=== PATIENT | female | born 1990 | race Caucasian/White ===

== ENCOUNTER 2017-01-20 14:40 | Emergency (ER) | payer MEDICAID ==
[2017-01-20] MEDS ORDERED: Ketorolac 60 MG/2 ML SDV IM ONE (15:22)
[2017-01-20 15:24] VITALS: BP 131/82
--- NOTE | 2017-01-20 15:39 | EDM.PDOC ---
ED HISTORY OF PRESENT ILLNESS - General Chief Complaint: Chest Pain Stated Complaint: CHEST PAIN Time Seen by Provider: 01/20/17 14:45 Source of Information: Reports: Patient, Family, RN, RN notes reviewed History Limitations: Reports: No limitations - History of Present Illness INITIAL COMMENTS - FREE TEXT/NARRATIVE: Patient presents to the emergency room at [facility] complaining of left- sided chest pain. The patient states that her chest pain began around 8:30 PM last evening. The patient states that the chest pain was unprovoked. The patient has no previous cardiac history. The patient denies any injury or trauma to the chest. No previous chest surgeries. The patient states she's had some shortness of breath with the chest pain. The chest pain is reproducible with palpation. The patient states that the pain extends into the middle of her back. The patient denies any nausea vomiting or diarrhea. No focal neurological deficits. The patient was seen today at the [facility]. I did speak with the provider that saw her in clinic. The patient had an EKG that was normal and unremarkable. The patient did not have any blood work or chest x-ray as it was not medically necessary given the diagnosis of costochondritis and chest wall pain. The patient was discharged from the clinic with a prescription for diclofenac. The patient was also seen by her chiropractor who had nothing to offer her. The patient states that the chiropractor recommended that she be seen in the emergency department. Symptom Onset Date: 01/19/17 Symptom Onset Time: 20:30 Timing/Duration: Reports: Waxing/waning Severity: mild Location, General: Reports: chest Quality: Reports: Sharp Improves with: Reports: Rest Worsens with: Reports: Breathing, Movement Context, General: Denies: Activity, Exercise, Lifting, Sick contact, Trauma Associated Symptoms (General): Reports: no other symptoms - Related Data Allergies/ADRs: Allergies Allergy/AdvReac Type Severity Reaction Status Date / Time hydromorphone HCl Allergy Hives Verified 11/15/16 16:46 [From Dilaudid] Sulfa (Sulfonamide Allergy Hives Verified 11/15/16 16:46 Antibiotics) sumatriptan [From Imitrex] Allergy Cannot Verified 01/20/17 15:08 Remember tramadol Allergy Hives Verified 11/15/16 16:46 CT dye Allergy Hives Uncoded 05/02/14 17:58 Home Meds: Home Meds . 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 Neurological History: Reports: Migraines Psychiatric History: Reports: Depression Endocrine/Metabolic History: Reports: Obesity/BMI 30+ - Past Surgical History Female Surgical History: Reports: Breast reduction Social & Family History - Tobacco Use Smoking Status *Q: Current Every Day Smoker Years of Tobacco use: 10 Packs/Tins Daily: 0.5 - Alcohol Use Days Per Week of Alcohol Use: 0 Number of Drinks Per Day: 3 Total Drinks Per Week: 0 - Recreational Drug Use Recreational Drug Use: No ED ROS GENERAL - Review of Systems Review Of Systems: See Below Constitutional: Denies: fever, chills, weakness Respiratory: Reports: Shortness of Breath (mild), Pleuritic Chest Pain. Denies : Cough Cardiovascular: Reports: Chest pain. Denies: Blood pressure problem, Dyspnea on exertion, Lightheadedness, Palpitations GI/Abdominal: Reports: No symptoms Musculoskeletal: Reports: back pain, muscle pain Skin: Reports: no symptoms Neurological: Reports: No Symptoms. Denies: Dizziness, Headache, Numbness, Paresthesia, Tingling ED EXAM, GENERAL - Physical Exam Exam: See Below Exam Limited By: No limitations General Appearance: alert, no apparent distress Respiratory/Chest: no respiratory distress, lungs clear, normal breath sounds, other (chest wall tender at clavicular joint) Cardiovascular: regular rate, rhythm Peripheral Pulses: 2+: radial (L), radial (R) GI/Abdominal: normal bowel sounds, soft, non tender Back Exam: No: CVA tenderness (L), CVA tenderness (R) Neurological: alert, oriented Skin Exam: Warm, Dry, Intact, Normal color, No rash Course - Vital Signs Last Recorded V/S: Last Vital Signs Temp 36.7 C 01/20/17 14:50 Pulse 81 01/20/17 14:50 Resp 16 01/20/17 14:50 BP 131/82 01/20/17 14:50 Pulse Ox - Orders/Labs/Meds Orders: Active Orders 24 hr Category Date Time Status EKG 12 Lead [EKG Documentation Completion] [RC] STAT Care 01/20/17 15:21 Active Chest 2V [CR] Stat Exams 01/20/17 15:23 Taken Labs: Laboratory Tests 01/20/17 01/20/17 01/20/17 Range/Units 15:39 15:39 15:54 WBC 8.6 (4.0-10.0) x10^3/uL RBC 4.63 (4.00-5.50) x10^6/uL Hgb 13.2 (12.0-16.0) g/dL Hct 40.7 (33.0-47.0) % MCV 87.9 (78.0-93.0) fL MCH 28.5 (26.0-32.0) pg MCHC 32.4 (32.0-36.0) g/dL RDW Coeff of Anne 13.5 (10.0-15.0) % Plt Count 269 (130-400) x10^3/uL Neut % (Auto) 71.6 (50.0-80.0) % Lymph % (Auto) 18.4 L (25.0-50.0) % [place] % (Auto) 8.3 (2.0-11.0) % Eos % (Auto) 1.5 (0.0-4.0) % Baso % (Auto) 0.2 (0.2-1.2) % Sodium 141 (136-145) mmol/L Potassium 4.5 (3.5-5.1) mmol/L Chloride 103 (98-107) mmol/L Carbon Dioxide 31 (21-32) mmol/L BUN 12 (7-18) mg/dL Creatinine 0.6 (0.55-1.02) mg/dL Est Cr Clr Drug Dosing 100.27 mL/min Estimated GFR (MDRD) > 60 Glucose 98 (74-106) mg/dL Calcium 8.3 L (8.5-10.1) mg/dL Creatine Kinase 69 (26-192) U/L Creatine Kinase Index 1.0 (0.0-4.0) % CK-MB (CK-2) 0.7 (0.0-3.6) ng/mL Troponin I < 0.017 (<=0.056) ng/mL Urine Color (YELLOW) Urine Appearance (CLEAR) Urine pH (5.0-8.0) Ur Specific [place] Urine Protein (NEGATIVE) mg/dL Urine Glucose (UA) (NEGATIVE) mg/dL Urine Ketones (NEGATIVE) mg/dL Urine Occult Blood (NEGATIVE) Urine Nitrite (NEGATIVE) Urine Bilirubin (NEGATIVE) Urine Urobilinogen (0.2) EU/dL Ur Leukocyte Esterase (NEGATIVE) Urine RBC (NOT SEEN) /HPF Urine WBC (NOT SEEN) /HPF Ur Squamous Epith Cells (NEGATIVE) /HPF Urine Bacteria (NEGATIVE) /HPF Urine Mucus (NEGATIVE) /LPF Urine Opiates Screen Negative (NEGATIVE) Ur Buprenorphine Scrn Negative (NEGATIVE) Ur Oxycodone Screen Negative (NEGATIVE) Urine Methadone Screen Negative (NEGATIVE) Ur Barbiturates Screen Negative (NEGATIVE) Ur Tricyclics Screen Negative (NEGATIVE) Ur Amphetamine Screen Negative (NEGATIVE) U Methamphetamines Scrn Negative (NEGATIVE) Urine MDMA Screen Negative (NEGATIVE) U Benzodiazepines Scrn Negative (NEGATIVE) U Cocaine Metab Screen Negative (NEGATIVE) U Marijuana (THC) Screen Negative (NEGATIVE) 01/20/17 Range/Units 15:54 WBC (4.0-10.0) x10^3/uL RBC (4.00-5.50) x10^6/uL Hgb (12.0-16.0) g/dL Hct (33.0-47.0) % MCV (78.0-93.0) fL MCH (26.0-32.0) pg MCHC (32.0-36.0) g/dL RDW Coeff of Anne (10.0-15.0) % Plt Count (130-400) x10^3/uL Neut % (Auto) (50.0-80.0) % Lymph % (Auto) (25.0-50.0) % [place] % (Auto) (2.0-11.0) % Eos % (Auto) (0.0-4.0) % Baso % (Auto) (0.2-1.2) % Sodium (136-145) mmol/L Potassium (3.5-5.1) mmol/L Chloride (98-107) mmol/L Carbon Dioxide (21-32) mmol/L BUN (7-18) mg/dL Creatinine (0.55-1.02) mg/dL Est Cr Clr Drug Dosing mL/min Estimated GFR (MDRD) Glucose (74-106) mg/dL Calcium (8.5-10.1) mg/dL Creatine Kinase (26-192) U/L Creatine Kinase Index (0.0-4.0) % CK-MB (CK-2) (0.0-3.6) ng/mL Troponin I (<=0.056) ng/mL Urine Color Dark yellow H (YELLOW) Urine Appearance Slightly cloudy H (CLEAR) Urine pH 7.0 (5.0-8.0) Ur Specific [place] 1.020 Urine Protein Negative (NEGATIVE) mg/dL Urine Glucose (UA) Negative (NEGATIVE) mg/dL Urine Ketones Negative (NEGATIVE) mg/dL Urine Occult Blood Negative (NEGATIVE) Urine Nitrite Negative (NEGATIVE) Urine Bilirubin Negative (NEGATIVE) Urine Urobilinogen 1.0 (0.2) EU/dL Ur Leukocyte Esterase Negative (NEGATIVE) Urine RBC 0-5 (NOT SEEN) /HPF Urine WBC 5-10 H (NOT SEEN) /HPF Ur Squamous Epith Cells Moderate H (NEGATIVE) /HPF Urine Bacteria Few H (NEGATIVE) /HPF Urine Mucus Moderate H (NEGATIVE) /LPF Urine Opiates Screen (NEGATIVE) Ur Buprenorphine Scrn (NEGATIVE) Ur Oxycodone Screen (NEGATIVE) Urine Methadone Screen (NEGATIVE) Ur Barbiturates Screen (NEGATIVE) Ur Tricyclics Screen (NEGATIVE) Ur Amphetamine Screen (NEGATIVE) U Methamphetamines Scrn (NEGATIVE) Urine MDMA Screen (NEGATIVE) U Benzodiazepines Scrn (NEGATIVE) U Cocaine Metab Screen (NEGATIVE) U Marijuana (THC) Screen (NEGATIVE) Meds: Medications Discontinued Medications Generic Name Dose Route Start Last Admin Trade Name Freq PRN Reason Stop Dose Admin Ketorolac Tromethamine 60 mg 01/20/17 15:22 01/20/17 15:36 Toradol IM 01/20/17 15:23 60 mg ONETIME ONE Administration Orphenadrine Citrate 60 mg 01/20/17 15:23 01/20/17 15:36 Norflex IM 01/20/17 15:24 60 mg Q12H ONE Administration Departure - Departure Time of Disposition: 16:34 Disposition: Home, Self-Care 01 Condition: good Clinical Impression: Costochondritis, Chest wall pain Instructions: Costochondritis Referrals: Ileana Borrero PA-C [Primary Care Provider] - Forms: ED Department Discharge Additional Instructions: 1. Stay well hydrated and rest 2. Use medications given to use from the clinic today 3. See your Primary as symptoms warrant - Problem List Review Problem List Initiated/Reviewed/Updated: Yes - My Orders Last 24 Hours: My Active Orders 01/20/17 15:21 EKG 12 Lead [EKG Documentation Completion] [RC] STAT 01/20/17 15:23 Chest 2V [CR] Stat - Assessment/Plan Last 24 Hours: My Active Orders 01/20/17 15:21 EKG 12 Lead [EKG Documentation Completion] [RC] STAT 01/20/17 15:23 Chest 2V [CR] Stat
[2017-01-20 16:16] LABS: CHLORIDE,CL 103 mmol/L (98-107); SODIUM,NA 141 mmol/L (136-145)
== END 2017-01-20 16:40 | disposition home or self-care (01) ==
LOC: VM.ED 14:40
DX: M94.0 Chondrocostal junction syndrome [Tietze] (principal); K21.9 Gastro-esophageal reflux disease without esophagitis; F32.9 Major depressive disorder, single episode, unspecified; E66.9 Obesity, unspecified; F17.210 Nicotine dependence, cigarettes, uncomplicated; Z88.2 Allergy status to sulfonamides; Z88.5 Allergy status to narcotic agent; Z91.041 Radiographic dye allergy status; Z88.8 Allergy status to other drugs, medicaments and biological substances
CPT/HCPCS: 36415; 71020; 80048; 80305; 81001; 82550; 82553; 84484; 85025; 93005; 96372; 99285; J1885; J2360

== ENCOUNTER 2017-03-26 14:29 | Emergency (ER) | payer MEDICAID ==
--- NOTE | 2017-03-26 14:41 | EDM.PDOC ---
ED HPI GENERAL MEDICAL PROBLEM - General Chief Complaint: Upper Extremity Injury/Pain Stated Complaint: Fall; right wrist injury; cut to top of right thumb Time Seen by Provider: 03/26/17 14:30 Source of Information: Reports: Patient, RN, RN Notes Reviewed History Limitations: Reports: No Limitations - History of Present Illness INITIAL COMMENTS - FREE TEXT/NARRATIVE: Patient presents to the ED at [facility] with two separate complaints. 2 days ago, patient states she was cutting food, when the knife slipped and caused a very superficial skin abrasion to the dorsum of the right thumb. Yesterday, the patient states she fell forward, causing a right wrist injury. No previous injury or trauma. No previous right wrist surgeries. No swelling. Only pain is with hyperflexion. Right Wrist Pain Score (Numeric/FACES): 2 - Related Data Allergies Allergy/AdvReac Type Severity Reaction Status Date / Time hydromorphone HCl Allergy Hives Verified 03/26/17 14:41 [From Dilaudid] Sulfa (Sulfonamide Allergy Hives Verified 03/26/17 14:41 Antibiotics) sumatriptan [From Imitrex] Allergy Cannot Verified 03/26/17 14:41 Remember tramadol Allergy Hives Verified 03/26/17 14:41 CT dye Allergy Hives Uncoded 03/26/17 14:41 Home Meds: Home Meds . [No Known Home Meds] 01/20/17 [History] Past Medical History HEENT History: Reports: Otitis Media Cardiovascular History: Reports: Other (See Below) Other Cardiovascular History: mitral valve prolapse? 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 Neurological History: Reports: Migraines Psychiatric History: Reports: Depression Endocrine/Metabolic History: Reports: Obesity/BMI 30+ - Past Surgical History HEENT Surgical History: Reports: Naso-Sinus Surgery Female Surgical History: Reports: Breast Reduction Social & Family History - Tobacco Use Smoking Status *Q: Current Every Day Smoker Years of Tobacco use: 10 Packs/Tins Daily: 0.5 - Alcohol Use Days Per Week of Alcohol Use: 0 Number of Drinks Per Day: 3 Total Drinks Per Week: 0 - Recreational Drug Use Recreational Drug Use: No Review of Systems - Review of Systems Review Of Systems: See Below Constitutional: Denies: Chills, Fever, Weakness Respiratory: Denies: Shortness of Breath, Cough Cardiovascular: Denies: Chest Pain, Palpitations Musculoskeletal: Reports: Hand Pain Skin: Reports: Wound (top of right thumb) Neurological: Reports: No Symptoms. Denies: Numbness, Paresthesia, Tingling ED EXAM, GENERAL - Physical Exam Exam: See Below Exam Limited By: No Limitations General Appearance: Alert, No Apparent Distress Head: Atraumatic, Normocephalic Respiratory/Chest: No Respiratory Distress, Lungs Clear, Normal Breath Sounds Cardiovascular: Regular Rate, Rhythm Peripheral Pulses: 2+: Radial (R) Extremities: Normal Capillary Refill, Other (no bone deformity; no attila crepitus; skin intact). No: Joint Swelling, Limited Range of Motion Neurological: Alert, Oriented Skin Exam: Warm, Dry, Normal Color, No Rash, Wound/Incision (0.2cm skin abrasion to dorsum of right thumb; skin intact, no evidence of infection; very very mild eythema) Course - Vital Signs Last Recorded V/S: Last Vital Signs Temp 36.9 C 03/26/17 14:30 Pulse 80 03/26/17 14:30 Resp 16 03/26/17 14:30 BP 102/69 03/26/17 14:30 Pulse Ox - Orders/Labs/Meds Orders: Active Orders 24 hr Category Date Time Status Wrist Comp Min 3V Rt [CR] Stat Exams 03/26/17 14:35 Taken - Re-Assessments/Exams Free Text/Narrative Re-Assessment/Exam: 03/26/17 15:14 No intervention needed for skin abrasion to top of right thumb. Xray discussed with patient; recommend an IFEOMA wrap for a couple days and use ice as needed Departure - Departure Time of Disposition: 15:15 Disposition: Home, Self-Care 01 Condition: good Clinical Impression: Skin abrasion Right wrist injury Qualifiers: Encounter type: initial encounter Qualified Code(s): S69.91XA - Unspecified injury of right wrist, hand and finger(s), initial encounter - Discharge Information Instructions: Wrist Pain Referrals: Ileana Borrero PA-C [Primary Care Provider] - Forms: ED Department Discharge Additional Instructions: 1. Stay well hydrated and rest 2. Use ice on wrist as needed 3. May alternate Tylenol/Advil as needed 4. No infection of the right thumb; keep area clean and dry 5. See your Primary as symptoms warrant - Problem List Review Problem List Initiated/Reviewed/Updated: Yes - My Orders Last 24 Hours: My Active Orders 03/26/17 14:35 Wrist Comp Min 3V Rt [CR] Stat - Assessment/Plan Last 24 Hours: My Active Orders 03/26/17 14:35 Wrist Comp Min 3V Rt [CR] Stat
[2017-03-26 14:47] VITALS: BP 102/69
== END 2017-03-26 15:28 | disposition home or self-care (01) ==
LOC: VM.ED 14:29
DX: S69.91XA Unspecified injury of right wrist, hand and finger(s), initial encounter (principal); K21.9 Gastro-esophageal reflux disease without esophagitis; F17.210 Nicotine dependence, cigarettes, uncomplicated; Z88.8 Allergy status to other drugs, medicaments and biological substances; Z88.2 Allergy status to sulfonamides; W26.0XXA Contact with knife, initial encounter
CPT/HCPCS: 73110-RT; 99283

== ENCOUNTER 2019-11-02 17:31 | Emergency (ER) | payer MEDICAID ==
[2019-11-02 17:45] VITALS: BP 131/91; PULSE 87
[2019-11-02] MEDS ORDERED: Take Home: Phenazopyridine 95 MG Tab, 4 Tab Pack ONE (17:58)
[2019-11-02] MEDS ORDERED: Take Home: Nitrofurantoin Monohydrate/Macrocrystalline 100 MG, 2 Cap Pack PO ONE (17:58)
--- NOTE | 2019-11-02 18:24 | EDM.PDOC ---
ED HPI GENERAL MEDICAL PROBLEM - General Chief Complaint: Genitourinary Problem Stated Complaint: POSSIBLE UTI Time Seen by Provider: 11/02/19 17:50 Source of Information: Reports: Patient History Limitations: Reports: No Limitations - History of Present Illness INITIAL COMMENTS - FREE TEXT/NARRATIVE: Patient presents to the ER with complaints of UTI. Patient states she has had symptoms for last 2 days. States she has polyuria and urgency and it scott when she urinates. Patient states she has lower abdominal discomfort. Patient denies fever, chills, myalgias or rash. Patient states she gets UTIs often, last was about 2 months ago. patient Denies STI's, states her and her partner were tested last week and it was negative. Patient denies lower back pain. Patient stated she had right subcostal discomfort that radiated towards her lower abdominal earlier today that lasted about 2 minutes. Patient denies having diarrhea or abdominal cramping when eating fatty foods. Onset Date: 10/31/19 Duration: Constant Location: Reports: Abdomen Severity: Moderate Improves with: Reports: None Worsens with: Reports: None Associated Symptoms: Reports: No Other Symptoms - Related Data Allergies Allergy/AdvReac Type Severity Reaction Status Date / Time cefdinir Allergy Cannot Verified 11/02/19 17:44 Remember hydromorphone HCl Allergy Hives Verified 11/02/19 17:44 [From Dilaudid] Sulfa (Sulfonamide Allergy Hives Verified 11/02/19 17:44 Antibiotics) sumatriptan [From Imitrex] Allergy Cannot Verified 11/02/19 17:44 Remember tramadol Allergy Hives Verified 11/02/19 17:44 CT dye Allergy Hives Uncoded 11/02/19 17:44 Home Meds: Home Meds . [No Known Home Meds] 01/20/17 [History] Past Medical History HEENT History: Reports: Otitis Media Cardiovascular History: Reports: Other (See Below) Other Cardiovascular History: mitral valve prolapse? 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 Neurological History: Reports: Migraines Psychiatric History: Reports: Depression Endocrine/Metabolic History: Reports: Obesity/BMI 30+ - Past Surgical History HEENT Surgical History: Reports: Naso-Sinus Surgery Female Surgical History: Reports: Breast Reduction Social & Family History - Tobacco Use Smoking Status *Q: Unknown Ever Smoked ED ROS GENERAL - Review of Systems Review Of Systems: See Below Constitutional: Denies: Fever, Chills, Malaise, Decreased Appetite HEENT: Denies: Vertigo Respiratory: Denies: Shortness of Breath, Cough Cardiovascular: Denies: Chest Pain, Dyspnea on Exertion, Palpitations Endocrine: Reports: Polyuria. Denies: Fatigue GI/Abdominal: Reports: Abdominal Pain. Denies: Constipation, Diarrhea, Decreased Appetite, Distension, Flatus, Nausea : Reports: Dysuria, Frequency, Urgency. Denies: Discharge, Flank Pain Musculoskeletal: Reports: No Symptoms Skin: Denies: Rash Neurological: Denies: Confusion, Dizziness, Headache, Numbness, Tingling, Weakness Psychiatric: Denies: Agitation, Anxiety Hematologic/Lymphatic: Reports: No Symptoms Immunologic: Reports: No Symptoms ED EXAM, GENERAL - Physical Exam Exam: See Below Exam Limited By: No Limitations General Appearance: Alert, No Apparent Distress Eye Exam: Bilateral Eye: PERRL Ears: Normal External Exam Nose: Normal Inspection Throat/Mouth: Normal Inspection Head: Atraumatic, Normocephalic Neck: Normal Inspection Respiratory/Chest: No Respiratory Distress, Lungs Clear, Normal Breath Sounds Cardiovascular: Regular Rate, Rhythm, No Edema, No Murmur GI/Abdominal: Normal Bowel Sounds, Soft, Other (lower abdominal tenderness) (Female) Exam: Deferred Rectal (Female) Exam: Deferred Neurological: Alert, Oriented, CN II-XII Intact, Normal Cognition, Normal Gait, Normal Reflexes, No Motor/Sensory Deficits Psychiatric: Normal Affect, Normal Mood Skin Exam: Warm, Dry, Intact, Normal Color, No Rash Lymphatic: No Adenopathy Course - Vital Signs Last Recorded V/S: Last Vital Signs Temp 36.6 C 11/02/19 17:36 Pulse 87 11/02/19 17:36 Resp 16 11/02/19 17:36 BP 131/91 H 11/02/19 17:36 Pulse Ox 99 11/02/19 17:36 - Orders/Labs/Meds Orders: Active Orders 24 hr Category Date Time Status CULTURE URINE [RM] Stat Lab 11/02/19 17:50 Received UA W MICR POC [POC] Stat Lab 11/02/19 17:50 Results Labs: Laboratory Tests 11/02/19 Range/Units 17:50 Urine Color Dark yellow (YELLOW) POC Urine Appearance Slightly cloudy H (CLEAR) POC Urine pH 7.5 (5.0-8.0) Ur Specific [place] 1.015 (1.005-1.030) POC Urine Protein Trace H (NEGATIVE) POC Ur Glucose (UA) Negative (NEGATIVE) POC Urine Ketones Negative (NEGATIVE) POC Ur Occult Blood Negative (NEGATIVE) POC Urine Nitrite Negative (NEGATIVE) POC Urine Bilirubin Negative (NEGATIVE) POC Urine Urobilinogen 0.2 (0.2) POC U Leukocyte Esteras Moderate H (NEGATIVE) Meds: Medications Discontinued Medications Generic Name Dose Route Start Last Admin Trade Name Freq PRN Reason Stop Dose Admin Nitrofurantoin Macrocrystals 2 packet 11/02/19 17:58 Take Home: Nitrofur [place]/Ma 100 Mg, 2 Pack PO 11/02/19 17:59 ONETIME ONE Phenazopyridine HCl 2 packet 11/02/19 17:58 Take Home: Phenazopyridine, 4 Tab Pack .XX 11/02/19 17:59 ONETIME ONE Departure - Departure Time of Disposition: 06:30 Disposition: Home, Self-Care 01 Clinical Impression: UTI, Urinary tract infectious disease - Discharge Information Instructions: Nitrofurantoin tablets or capsules, Phenazopyridine tablets, Probiotics Referrals: Lucio Rico PA-C [Primary Care Provider] - Forms: ED Department Discharge Additional Instructions: Macrobid 100mg twice daily for 7 days Pyridium (phenazopyridine) 1 tab 3 times daily for 5 days Drink plenty of fluids Recheck in clinic in 10-14 days Sepsis Event Note - Evaluation Sepsis Screening Result: No Definite Risk - Focused Exam Vital Signs: Vital Signs Temp Pulse Resp BP Pulse Ox 11/02/19 17:36 36.6 C 87 16 131/91 H 99 Date Exam was Performed: 11/02/19 Time Exam was Performed: 18:17 - My Orders Last 24 Hours: My Active Orders 11/02/19 17:50 CULTURE URINE [RM] Stat UA W MICR POC [POC] Stat - Assessment/Plan Last 24 Hours: My Active Orders 11/02/19 17:50 CULTURE URINE [RM] Stat UA W MICR POC [POC] Stat Plan: Macrobid 100mg twice daily for 7 days Pyridium (phenazopyridine) 1 tab 3 times daily for 5 days Drink plenty of fluids Recheck in clinic in 10-14 days
== END 2019-11-02 18:22 | disposition home or self-care (01) ==
LOC: VM.ED 17:31
DX: N39.0 Urinary tract infection, site not specified (principal); Z88.1 Allergy status to other antibiotic agents; Z88.2 Allergy status to sulfonamides; Z88.6 Allergy status to analgesic agent; Z91.041 Radiographic dye allergy status
CPT/HCPCS: 81000; 87086; 87088; 87186; 99284; A9270-GY

== ENCOUNTER 2020-08-15 23:25 | Emergency (ER) | payer MEDICAID ==
[2020-08-15] MEDS: Take Home: Amoxicillin/Clavulanate K 875-125 MG Tab, 2 Tab Pack PO ONE ×2 (23:40)
[2020-08-15] MEDS: Take Home: Acetaminophen/Codeine 300 MG/30 MG, 5 Tab Pack PO ONE (23:40)
--- NOTE | 2020-08-15 23:47 | EDM.PDOC ---
ED HPI GENERAL MEDICAL PROBLEM - General Chief Complaint: ENT Problem Stated Complaint: Right dental pain Time Seen by Provider: 08/15/20 23:27 Source of Information: Reports: Patient History Limitations: Reports: No Limitations - History of Present Illness INITIAL COMMENTS - FREE TEXT/NARRATIVE: Pt. presents to ER with complaints of R sided dental pain. Pt. states that she thinks she has had a chip or hole in her tooth. Pt. states that is have been causing her discomfort for several days, but she noticed swelling and numbness to the cheek tonight. Denies any fever or chills. No problems with fever or chills. Denies any chest pain or shortness of breath. Onset: Today Location: Reports: Face - Related Data Allergies Allergy/AdvReac Type Severity Reaction Status Date / Time cefdinir Allergy Cannot Verified 11/02/19 17:44 Remember hydromorphone HCl Allergy Hives Verified 11/02/19 17:44 [From Dilaudid] Sulfa (Sulfonamide Allergy Hives Verified 11/02/19 17:44 Antibiotics) sumatriptan [From Imitrex] Allergy Cannot Verified 11/02/19 17:44 Remember tramadol Allergy Hives Verified 11/02/19 17:44 CT dye Allergy Hives Uncoded 11/02/19 17:44 Home Meds: Home Meds . [No Known Home Meds] 01/20/17 [History] Past Medical History HEENT History: Reports: Otitis Media Cardiovascular History: Reports: Other (See Below) Other Cardiovascular History: mitral valve prolapse? 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 Neurological History: Reports: Migraines Psychiatric History: Reports: Depression Endocrine/Metabolic History: Reports: Obesity/BMI 30+ - Past Surgical History HEENT Surgical History: Reports: Naso-Sinus Surgery Female Surgical History: Reports: Breast Reduction ED ROS GENERAL - Review of Systems Review Of Systems: See Below Constitutional: Reports: No Symptoms HEENT: Reports: Dental Pain Respiratory: Reports: No Symptoms Cardiovascular: Reports: No Symptoms Endocrine: Reports: No Symptoms GI/Abdominal: Reports: No Symptoms : Reports: No Symptoms Musculoskeletal: Reports: No Symptoms Skin: Reports: No Symptoms Neurological: Reports: No Symptoms Psychiatric: Reports: No Symptoms Hematologic/Lymphatic: Reports: No Symptoms Immunologic: Reports: No Symptoms ED EXAM, GENERAL - Physical Exam Exam: See Below Exam Limited By: No Limitations General Appearance: Alert, WD/WN, No Apparent Distress Throat/Mouth: Normal Lips, Other (missing several teeth. No obvious abscess noted. She does have some swelling to the R cheek. No swelling to the hypopharynx) Head: Atraumatic, Normocephalic Neck: Normal Inspection, Supple, Non-Tender, Full Range of Motion Respiratory/Chest: No Respiratory Distress, Lungs Clear, Normal Breath Sounds, No Accessory Muscle Use, Chest Non-Tender Course - Orders/Labs/Meds Meds: Medications Discontinued Medications Generic Name Dose Route Start Last Admin Trade Name Freq PRN Reason Stop Dose Admin Acetaminophen/Codeine Phosphate 2 packet 08/15/20 23:34 Take Home: Acetam/Codeine 300-30 Mg, 5 Pack PO 08/15/20 23:35 ONETIME ONE Amoxicillin/Clavulanate Potassium 1 packet 08/15/20 23:34 Take Home: Amox/Clavulanate 875-12, 2 Tab Pac PO 08/15/20 23:35 ONETIME ONE Amoxicillin/Clavulanate Potassium 1 packet 08/15/20 23:39 Take Home: Amox/Clavulanate 875-12, 2 Tab Pac PO 08/15/20 23:40 ONETIME ONE Ketorolac Tromethamine 30 mg 08/15/20 23:34 08/15/20 23:51 Toradol IM 08/15/20 23:35 30 mg ONETIME ONE Administration Departure - Departure Time of Disposition: 11:55 Disposition: Home, Self-Care 01 Clinical Impression: Pain, dental - Discharge Information Instructions: Amoxicillin; Clavulanic Acid tablets, Dental Abscess, [id number], Acetaminophen; Codeine tablets , Probiotics Forms: ED Department Discharge Additional Instructions: Home to rest. Augmentin 875mg 1 twice daily for 10 days Ibuprofen 200mg 3 tabs every 6 hours as needed for pain Tylenol #3 1 every 6-8 hours as needed for pain severe pain Follow-up with dentist on Monday. - Assessment/Plan Plan: Home to rest. Augmentin 875mg 1 twice daily for 10 days Ibuprofen 200mg 3 tabs every 6 hours as needed for pain Tylenol #3 1 every 6-8 hours as needed for pain severe pain Follow-up with dentist on Monday.
[2020-08-15] MEDS: Ketorolac 30 MG/ML SDV IM ONE (23:51)
[2020-08-16 02:27] VITALS: BP 126/79; PULSE 92
== END 2020-08-15 23:50 | disposition home or self-care (01) ==
LOC: VM.ED 23:25
DX: K08.89 Other specified disorders of teeth and supporting structures (principal); E66.9 Obesity, unspecified; Z88.5 Allergy status to narcotic agent; Z88.1 Allergy status to other antibiotic agents; Z91.041 Radiographic dye allergy status; Z88.8 Allergy status to other drugs, medicaments and biological substances; Z68.35 Body mass index [BMI] 35.0-35.9, adult
CPT/HCPCS: 96372; 99282; 99283; A9270-GY; J1885

== ENCOUNTER 2020-11-08 10:36 | Emergency (ER) | payer MEDICAID ==
[2020-11-08 10:52] VITALS: BP 111/80; PULSE 89
[2020-11-08] MEDS ORDERED: Ondansetron 4 MG/2 ML SDV IVPUSH ONE (11:10)
[2020-11-08] MEDS ORDERED: Ketorolac 30 MG/ML SDV IVPUSH ONE (11:10)
[2020-11-08] MEDS ORDERED: Sodium Chloride 0.9% 1,000 ML IV ONE (11:10)
[2020-11-08] MEDS ORDERED: Orphenadrine 60 MG/2 ML Inj IM ONE (11:10)
--- NOTE | 2020-11-08 11:17 | EDM.PDOC ---
ED HPI GENERAL MEDICAL PROBLEM - General Chief Complaint: Headache Stated Complaint: HEADACHE Time Seen by Provider: 11/08/20 11:00 Source of Information: Reports: Patient History Limitations: Reports: No Limitations - History of Present Illness INITIAL COMMENTS - FREE TEXT/NARRATIVE: Sarah is a 30 year old female who presents to ER with complaints of a migraine headache. States headache started last evening. Has tried Aleve and ibuprofen without relief. Describes as a typical headache for her with usual features. Has a pressure across her forehead region, neck discomfort "due to bone being out of place" and nausea. Admits to photophobia. No weakness in arms or legs. Denies head trauma. Relates that she has had neurological evaluation for migraines in the past, had CT scan before that was negative. Is supposed to be taking Propranolol and is to resume on Monday, admits that she doesn't take it regularly like she should. Onset: Gradual Duration: Hour(s):, Constant Location: Reports: Head, Neck Quality: Reports: Pressure, Sharp Severity: Severe Improves with: Reports: None Associated Symptoms: Reports: Headaches, Nausea/Vomiting. 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 [No Known Home Meds] 01/20/17 [History] Past Medical History HEENT History: Reports: Otitis Media Cardiovascular History: Reports: Other (See Below) Other Cardiovascular History: mitral valve prolapse? Gastrointestinal History: Reports: GERD HOME AID History: Reports: Other HOME AID History: LEEP procedure Neurological History: Reports: Migraines Psychiatric History: Reports: Addiction, Depression Endocrine/Metabolic History: Reports: Obesity/BMI 30+ - Past Surgical History HEENT Surgical History: Reports: Naso-Sinus Surgery Other HEENT Surgeries/Procedures: Sinus surgeries (bilateral nares) Female Surgical History: Reports: Breast Reduction Social & Family History - Tobacco Use Tobacco Use Status *Q: Current Every Day Tobacco User Years of Tobacco use: 10 Packs/Tins Daily: 0.5 - Recreational Drug Use Recreational Drug Use: Yes Recreational Drug Type: Reports: Methamphetamine Recreational Drug Use Frequency: Daily Recreational Drug Last Use: 11/07/20 ED ROS GENERAL - Review of Systems Review Of Systems: See Below Constitutional: Denies: Fever, Chills, Malaise, Weakness, Fatigue, Decreased Appetite HEENT: Denies: Ear Pain, Sinus Problem, Throat Pain, Vertigo, Vision Change Respiratory: Denies: Shortness of Breath Cardiovascular: Denies: Chest Pain, Edema, Lightheadedness Endocrine: Denies: Fatigue GI/Abdominal: Reports: Nausea. Denies: Abdominal Pain, Constipation, Diarrhea, Vomiting : Reports: No Symptoms Musculoskeletal: Reports: Neck Pain Skin: Reports: No Symptoms Neurological: Reports: Headache. Denies: Weakness - Physical Exam Exam: See Below Exam Limited By: No Limitations General Appearance: Alert, WD/WN, No Apparent Distress Eye Exam: Bilateral Eye: EOMI, PERRL Ears: Normal External Exam, Normal TMs Nose: Normal Inspection, Normal Mucosa, No Blood Throat/Mouth: Normal Inspection, Normal Oropharynx Head Exam: Normocephalic Neck: Normal Inspection, Supple, Non-Tender, Full Range of Motion, Tender Lateral Respiratory/Chest: No Respiratory Distress, Lungs Clear, Normal Breath Sounds Cardiovascular: Regular Rate, Rhythm GI/Abdominal: Normal Bowel Sounds, Soft, Non-Tender Neuro Exam (Abbreviated): Alert, Oriented, CN II-XII Intact, Normal Cognition, Normal Gait, No Motor/Sensory Deficits Extremities: Normal Inspection, No Pedal Edema Skin Exam: Warm, Dry Course - Vital Signs Last Recorded V/S: Last Vital Signs Temp 97.3 F 11/08/20 10:45 Pulse 89 11/08/20 10:45 Resp 18 11/08/20 10:45 BP 111/80 11/08/20 10:45 Pulse Ox 100 11/08/20 10:45 - Orders/Labs/Meds Orders: Active Orders 24 hr Category Date Time Status Sodium Chloride 0.9% [Normal Saline] 1,000 ml Med 11/08/20 11:10 Active IV ONETIME Medication Orders Sodium Chloride (Normal Saline) 1,000 mls @ 999 mls/hr IV ONETIME ONE Stop: 11/08/20 12:10 Last Admin: 11/08/20 11:24 Dose: 999 mls/hr Documented by: Meds: Medications Generic Name Dose Route Start Last Admin Trade Name Freq PRN Reason Stop Dose Admin Sodium Chloride 1,000 mls @ 999 mls/hr 11/08/20 11:10 11/08/20 11:24 Normal Saline IV 11/08/20 12:10 999 mls/hr ONETIME ONE Administration Discontinued Medications Generic Name Dose Route Start Last Admin Trade Name Freq PRN Reason Stop Dose Admin Ketorolac Tromethamine 30 mg 11/08/20 11:10 11/08/20 11:27 Toradol IVPUSH 11/08/20 11:11 30 mg ONETIME ONE Administration Ondansetron HCl 4 mg 11/08/20 11:10 11/08/20 11:25 Zofran IVPUSH 11/08/20 11:11 4 mg ONETIME ONE Administration Orphenadrine Citrate 60 mg 11/08/20 11:10 11/08/20 11:29 Norflex IM 11/08/20 11:11 60 mg ONETIME ONE Administration - Re-Assessments/Exams Free Text/Narrative Re-Assessment/Exam: 11/08/20 11:16 IV meds ordered. IV Normal saline bolus given for migraine symptoms. 11/08/20 11:47 Patient admits she is starting to feel some relief of the headache. Will discharge home after infusion complete. Departure - Departure Time of Disposition: 11:55 Disposition: Home, Self-Care 01 Condition: Good Clinical Impression: Migraine - Discharge Information *PRESCRIPTION DRUG MONITORING PROGRAM REVIEWED*: No *COPY OF PRESCRIPTION DRUG MONITORING REPORT IN PATIENT GALE: No Instructions: Recurrent Migraine Headache Referrals: Sylvia Powell MD [Primary Care Provider] - Forms: ED Department Discharge Additional Instructions: 1. Rest 2. Push fluids 3. Continue tylenol or ibuprofen for headache 4. Start Propranolol tomorrow as planned 5. Follow up with primary care provider as needed Sepsis Event Note (ED) - Evaluation Sepsis Screening Result: No Definite Risk - Focused Exam Vital Signs: Vital Signs Temp Pulse Resp BP Pulse Ox 11/08/20 10:45 97.3 F 89 18 111/80 100 - My Orders Last 24 Hours: My Active Orders 11/08/20 11:10 Sodium Chloride 0.9% [Normal Saline] 1,000 ml IV ONETIME - Assessment/Plan Last 24 Hours: My Active Orders 11/08/20 11:10 Sodium Chloride 0.9% [Normal Saline] 1,000 ml IV ONETIME
== END 2020-11-08 12:50 | disposition home or self-care (01) ==
LOC: VM.ED 10:36
DX: G43.909 Migraine, unspecified, not intractable, without status migrainosus (principal); E66.9 Obesity, unspecified; Z72.0 Tobacco use; Z88.1 Allergy status to other antibiotic agents; Z88.5 Allergy status to narcotic agent; Z88.2 Allergy status to sulfonamides; Z91.041 Radiographic dye allergy status; Z88.8 Allergy status to other drugs, medicaments and biological substances
CPT/HCPCS: 96372; 96374; 96375; 99283-25; 99284; J1885; J2360; J2405; J7030

== ENCOUNTER 2021-07-18 21:23 | Emergency (ER) | payer MEDICAID ==
[2021-07-18] MEDS ORDERED: Take Home: Acetaminophen/Codeine 300 MG/30 MG, 5 Tab Pack PO ONE (21:30)
[2021-07-18] MEDS ORDERED: Take Home: Amoxicillin/Clavulanate K 875-125 MG Tab, 2 Tab Pack PO ONE (21:30)
--- NOTE | 2021-07-19 01:49 | EDM.PDOC ---
ED HPI GENERAL MEDICAL PROBLEM - General Chief Complaint: ENT Problem Stated Complaint: Upper dental pain Time Seen by Provider: 07/18/21 21:25 Source of Information: Reports: Patient History Limitations: Reports: No Limitations - History of Present Illness INITIAL COMMENTS - FREE TEXT/NARRATIVE: Pt. presents to ER with complaints of dental pain. Pt. states that the discomfort started several days ago. She is unable to get into a dentist at this time. She states that the L upper incisor fractured some time ago and that is causing her discomfort. She has noticed swelling to the gums. Denies any swelling to the hypopharynx. No problems swallowing. Denies any fever or chills. Onset: Today Onset Date: 07/19/21 Location: Reports: Face - Related Data Allergies Allergy/AdvReac Type Severity Reaction Status Date / Time cefdinir Allergy Cannot Verified 07/18/21 21:45 Remember hydromorphone HCl Allergy Hives Verified 07/18/21 21:45 [From Dilaudid] Sulfa (Sulfonamide Allergy Hives Verified 07/18/21 21:45 Antibiotics) sumatriptan [From Imitrex] Allergy Cannot Verified 07/18/21 21:45 Remember tramadol Allergy Hives Verified 07/18/21 21:45 CT dye Allergy Hives Uncoded 07/18/21 21:45 Home Meds: Home Meds . [No Known Home Meds] 01/20/17 [History] Past Medical History HEENT History: Reports: Otitis Media Cardiovascular History: Reports: Other (See Below) Other Cardiovascular History: mitral valve prolapse? 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 ED EXAM, GENERAL - Physical Exam Exam: See Below Exam Limited By: No Limitations General Appearance: Alert, WD/WN, No Apparent Distress Throat/Mouth: Other (L upper incisor pain. Tooth fractured at level of gums. Surrounding gums are erythematous.) Course - Orders/Labs/Meds Meds: Medications Discontinued Medications Generic Name Dose Route Start Last Admin Trade Name Raquel PRN Reason Stop Dose Admin Acetaminophen/Codeine Phosphate 1 packet 07/18/21 21:30 07/18/21 21:46 Take Home: Acetaminophen/Codeine 300 Mg/30 Mg, 5 Tab Pack PO 07/18/21 21:31 1 packet ONETIME ONE Administration Amoxicillin/Clavulanate Potassium 1 packet 07/18/21 21:30 07/18/21 21:46 Take Home: Amoxicillin/Clavulanate K 875-125 Mg Tab, 2 Tab Pack PO 07/18/21 21:31 1 packet ONETIME ONE Administration Departure - Departure Time of Disposition: 22:00 Disposition: Home, Self-Care 01 Clinical Impression: Pain, dental - Discharge Information Instructions: Codeine tablets, Amoxicillin; Clavulanic Acid Tablets, Dental Pain, [id number] Referrals: Sylvia Powell MD [Primary Care Provider] - Additional Instructions: Augmentin 875mg 1 tab twice daily for 10 days Ibuprofen 200mg 3 tabs every 6 hours Tylenol #3 1 every 4-6 hours as needed for pain Follow-up with dentist [facility] - Problem List Review Problem List Initiated/Reviewed/Updated: Yes - Assessment/Plan Plan: Augmentin 875mg 1 tab twice daily for 10 days Ibuprofen 200mg 3 tabs every 6 hours Tylenol #3 1 every 4-6 hours as needed for pain Follow-up with dentist [facility]
[2021-07-19 04:33] VITALS: BP 138/91; PULSE 87
== END 2021-07-18 21:53 | disposition home or self-care (01) ==
LOC: VM.ED 21:23
DX: K08.89 Other specified disorders of teeth and supporting structures (principal); E66.9 Obesity, unspecified; Z68.37 Body mass index [BMI] 37.0-37.9, adult; Z88.2 Allergy status to sulfonamides; Z88.8 Allergy status to other drugs, medicaments and biological substances; Z91.041 Radiographic dye allergy status
CPT/HCPCS: 99282; 99283; A9270-GY

== ENCOUNTER 2021-11-23 05:30 | Emergency (ER) | payer BC, MEDICAID ==
[2021-11-23 06:53] VITALS: BP 113/64; PULSE 81
== END 2021-11-23 06:30 | disposition home or self-care (01) ==
LOC: VM.ED 05:30
DX: S01.01XA Laceration without foreign body of scalp, initial encounter (principal); E66.9 Obesity, unspecified; Z68.39 Body mass index [BMI] 39.0-39.9, adult; Z88.1 Allergy status to other antibiotic agents; Z88.5 Allergy status to narcotic agent; Z88.2 Allergy status to sulfonamides; Z88.8 Allergy status to other drugs, medicaments and biological substances; Z91.041 Radiographic dye allergy status; Y04.0XXA Assault by unarmed brawl or fight, initial encounter; Y92.009 Unspecified place in unspecified non-institutional (private) residence as the place of occurrence of the external cause
CPT/HCPCS: 12001; 99283-25; 99284

== ENCOUNTER 2022-03-17 20:54 | Emergency (ER) | payer BC ==
[2022-03-17 21:44] VITALS: BP 122/88; PULSE 85
== END 2022-03-17 21:30 | disposition home or self-care (01) ==
LOC: VM.ED 20:54
DX: S61.531A Puncture wound without foreign body of right wrist, initial encounter (principal); E66.9 Obesity, unspecified; Z88.1 Allergy status to other antibiotic agents; Z91.041 Radiographic dye allergy status; Z88.5 Allergy status to narcotic agent; Z88.2 Allergy status to sulfonamides; Z68.43 Body mass index [BMI] 50.0-59.9, adult; W25.XXXA Contact with sharp glass, initial encounter
CPT/HCPCS: 99283

== ENCOUNTER 2022-06-20 19:27 | Emergency (ER) | payer BC, MEDICAID ==
[2022-06-20 19:47] VITALS: BP 125/85; PULSE 96
[2022-06-20] MEDS ORDERED: Take Home: Ciprofloxacin 500 MG Tab, 2 Tab Pack PO ONE (20:21)
[2022-06-20] MEDS ORDERED: Take Home: Phenazopyridine 95 MG Tab, 4 Tab Pack ONE (20:23)
== END 2022-06-20 20:32 | disposition home or self-care (01) ==
LOC: VM.ED 19:27
DX: N30.01 Acute cystitis with hematuria (principal); J06.9 Acute upper respiratory infection, unspecified; F17.210 Nicotine dependence, cigarettes, uncomplicated; E66.9 Obesity, unspecified; Z68.30 Body mass index [BMI] 30.0-30.9, adult; Z88.1 Allergy status to other antibiotic agents; Z91.041 Radiographic dye allergy status; Z88.2 Allergy status to sulfonamides; Z88.5 Allergy status to narcotic agent; Z88.8 Allergy status to other drugs, medicaments and biological substances
CPT/HCPCS: 81001; 87086; 99283; A9270; 99284

== ENCOUNTER 2022-07-17 20:31 | Emergency (ER) | payer MEDICAID ==
[2022-07-17 20:51] VITALS: BP 136/85; PULSE 98
[2022-07-17 21:44] LABS: CORONAVIRUS COVID-19 NAA NEGATIVE (NEGATIVE); RESPIRATORY SYNCYTIAL VIR NAA NEGATIVE (NEGATIVE)
[2022-07-17] MEDS: Take Home: Amoxicillin/Clavulanate K 875-125 MG Tab, 2 Tab Pack PO ONE (21:59)
[2022-07-17] MEDS: Polymyxin B/Trimethoprim 10 ML Bottle EYEBOTH ONE (21:59)
== END 2022-07-17 22:02 | disposition home or self-care (01) ==
LOC: VM.ED 20:31
DX: K02.9 Dental caries, unspecified (principal); H10.30 Unspecified acute conjunctivitis, unspecified eye; F17.210 Nicotine dependence, cigarettes, uncomplicated; E66.9 Obesity, unspecified; Z68.38 Body mass index [BMI] 38.0-38.9, adult; Z88.1 Allergy status to other antibiotic agents; Z88.2 Allergy status to sulfonamides; Z88.8 Allergy status to other drugs, medicaments and biological substances; Z91.041 Radiographic dye allergy status; Z20.822 Contact with and (suspected) exposure to COVID-19
CPT/HCPCS: 0241U; 99283; A9270

== ENCOUNTER 2022-10-01 12:58 | Emergency (ER) | payer MEDICAID ==
[2022-10-01 13:15] VITALS: BP 123/78; PULSE 98
== END 2022-10-01 13:35 | disposition home or self-care (01) ==
LOC: VM.ED 12:58
DX: S10.96XA Insect bite of unspecified part of neck, initial encounter (principal); S60.561A Insect bite (nonvenomous) of right hand, initial encounter; S60.562A Insect bite (nonvenomous) of left hand, initial encounter; E66.9 Obesity, unspecified; Z68.37 Body mass index [BMI] 37.0-37.9, adult; Z88.1 Allergy status to other antibiotic agents; Z88.6 Allergy status to analgesic agent; Z88.2 Allergy status to sulfonamides; Z88.5 Allergy status to narcotic agent; Z91.041 Radiographic dye allergy status; Z79.899 Other long term (current) drug therapy; W57.XXXA Bitten or stung by nonvenomous insect and other nonvenomous arthropods, initial encounter
CPT/HCPCS: 99282; 99283

== ENCOUNTER 2023-02-02 20:13 | Emergency (ER) | payer MEDICAID ==
[2023-02-02 20:23] VITALS: BP 141/91; PULSE 98
[2023-02-02] MEDS ORDERED: Amoxicillin/Clavulanate K 875-125 MG Tab PO ONE (20:31)
[2023-02-02] MEDS ORDERED: cefTRIAXone 1 GM, Lidocaine 1% 2.1 ML IM ONE ×2 (20:34)
== END 2023-02-02 20:54 | disposition home or self-care (01) ==
LOC: VM.ED 20:13
DX: J32.9 Chronic sinusitis, unspecified (principal); E66.9 Obesity, unspecified; Z68.30 Body mass index [BMI] 30.0-30.9, adult; Z72.0 Tobacco use; Z88.1 Allergy status to other antibiotic agents; Z91.041 Radiographic dye allergy status; Z88.5 Allergy status to narcotic agent; Z88.2 Allergy status to sulfonamides
CPT/HCPCS: 96372; 99282; 99283; A9270; J0696; J3490

== ENCOUNTER 2023-02-23 21:58 | Emergency (ER) | payer MEDICAID ==
[2023-02-23] MEDS ORDERED: Sodium Chloride 0.9% 1,000 ML IV SCH (22:15)
[2023-02-23] MEDS: LORazepam 2 MG/ML SDV IVPUSH ONE (22:28)
[2023-02-24] MEDS ORDERED: Take Home: Ondansetron 4 MG Tab.DIS, 5 Tab Pack PO ONE (00:18)
[2023-02-24] MEDS: LORazepam 2 MG/ML SDV IVPUSH ONE (00:19)
[2023-02-24 05:54] VITALS: BP 112/64; PULSE 78
== END 2023-02-24 06:02 | disposition home or self-care (01) ==
LOC: VM.ED 21:58
DX: F12.120 Cannabis abuse with intoxication, uncomplicated (principal); E66.9 Obesity, unspecified; Z68.30 Body mass index [BMI] 30.0-30.9, adult; Z88.1 Allergy status to other antibiotic agents; Z88.5 Allergy status to narcotic agent; Z88.2 Allergy status to sulfonamides; Z91.041 Radiographic dye allergy status; Z88.8 Allergy status to other drugs, medicaments and biological substances; Z72.0 Tobacco use
CPT/HCPCS: 96360; 99284-25; J2060; J7030; Q0162

== ENCOUNTER 2023-04-05 16:59 | Emergency (ER) | payer MEDICAID ==
[2023-04-05 19:06] LABS: BASOPHILS PERCENT AUTO 0.2 % (0.2-1.2); EOSINOPHILS ABSOLUTE AUTO 0.2 x10^3/uL (0.0-0.5); EOSINOPHILS PERCENT AUTO 2.6 % (0.0-4.0); HEMATOCRIT 39.7 % (33.0-47.0); HEMOGLOBIN 13.2 g/dL (12.0-16.0); IMMATURE GRAN ABSOLUTE AUTO 0.02 x10^3/uL (0.00-0.07); LYMPHOCYTES ABSOLUTE AUTO 2.2 x10^3/uL (1.0-4.8); LYMPHOCYTES PERCENT AUTO 34.6 % (25.0-50.0); MEAN CORPUSCULAR HGB CONC 33.2 g/dL (32.0-36.0); MEAN CORPUSCULAR VOLUME 81.4 fL (78.0-93.0); MONOCYTES ABSOLUTE AUTO 0.5 x10^3/uL (0.0-0.8); MONOCYTES PERCENT AUTO 8.4 % (2.0-11.0); NEUTROPHILS ABSOLUTE AUTO 3.4 x10^3/uL (1.8-7.7); NEUTROPHILS PERCENT AUTO 53.9 % (50.0-80.0); RED BLOOD CELL COUNT 4.88 x10^6/uL (4.00-5.50); WHITE BLOOD CELL COUNT,WBC 6.2 x10^3/uL (4.0-10.0)
[2023-04-05 19:34] LABS: AMPHETAMINES SCREEN, URINE POSITIVE (NEGATIVE); BARBITURATE SCREEN,URINE NEGATIVE (NEGATIVE); BENZODIAZEPINES SCREEN,URINE NEGATIVE (NEGATIVE); BUPRENORPHINE SCREEN,URINE NEGATIVE (NEGATIVE); COCAINE METABOLITES,URINE NEGATIVE (NEGATIVE); METHADONE SCREEN, URINE NEGATIVE (NEGATIVE); METHAMPHETAMINE SCREEN, URINE POSITIVE (NEGATIVE); OXYCODONE SCREEN,URINE NEGATIVE (NEGATIVE); PCP SCREEN,URINE NEGATIVE (NEGATIVE); THC SCREEN,URINE 50 NG/ML NEGATIVE (NEGATIVE)
[2023-04-05 19:36] LABS: BLOOD UREA NITROGEN,BUN 8 mg/dL (7-18); CALCIUM 8.5 mg/dL (8.5-10.1); CARBON DIOXIDE,CO2 24 mmol/L (21-32); CHLORIDE,CL 104 mmol/L (98-107); CREATININE 0.8 mg/dL (0.55-1.02); GLUCOSE RANDOM 121 mg/dL (70-99); POTASSIUM,K 3.6 mmol/L (3.5-5.1); SODIUM,NA 141 mmol/L (136-145); TSH ULTRASENSITIVE 1.345 uIU/mL (0.358-3.74)
[2023-04-05 19:38] LABS: ANION GAP 16.6 mmol/L (5-15); ESTIMATED GFR 99 mL/min (>=60); PLATELET COUNT,PLT 116 x10^3/uL (130-400)
== END 2023-04-05 21:14 ==
LOC: VM.ED 16:59
DX: F15.10 Other stimulant abuse, uncomplicated (principal); E66.9 Obesity, unspecified; Z91.041 Radiographic dye allergy status; Z88.1 Allergy status to other antibiotic agents; Z88.5 Allergy status to narcotic agent; Z88.2 Allergy status to sulfonamides
CPT/HCPCS: 36415; 80048; 80305-QW; 84443; 85025; 99284

== ENCOUNTER 2023-07-16 03:20 | Emergency (ER) | payer MEDICAID ==
[2023-07-16] MEDS ORDERED: cefTRIAXone 2 GM, Lidocaine 1% 4.2 ML IM ONE ×2 (03:35)
[2023-07-16] MEDS ORDERED: Take Home: Doxycycline 100 MG Cap, 4 Cap Pack PO ONE (03:36)
[2023-07-16 04:02] VITALS: BP 128/74; PULSE 100
== END 2023-07-16 04:00 | disposition home or self-care (01) ==
LOC: VM.ED 03:20
DX: L03.113 Cellulitis of right upper limb (principal); F17.210 Nicotine dependence, cigarettes, uncomplicated; E66.9 Obesity, unspecified; Z88.5 Allergy status to narcotic agent; Z88.2 Allergy status to sulfonamides; Z88.8 Allergy status to other drugs, medicaments and biological substances; Z91.041 Radiographic dye allergy status
CPT/HCPCS: 96372; 99283; A9270-GY; J0696; J3490

== ENCOUNTER 2024-02-06 11:59 | Emergency (ER) | payer BC, MEDICAID ==
[2024-02-06 12:26] VITALS: BP 116/72; PULSE 99
== END 2024-02-06 12:45 | disposition left against medical advice (07) ==
LOC: VM.ED 11:59
DX: O99.891 Other specified diseases and conditions complicating pregnancy (principal); M25.562 Pain in left knee; Z88.1 Allergy status to other antibiotic agents; Z88.2 Allergy status to sulfonamides; Z88.5 Allergy status to narcotic agent; Z91.041 Radiographic dye allergy status; Z3A.32 32 weeks gestation of pregnancy
CPT/HCPCS: 73560-LT; 99283

== ENCOUNTER 2024-02-13 01:17 | Emergency (ER) | payer MEDICAID ==
[2024-02-13 01:36] VITALS: BP 123/75; PULSE 83
== END 2024-02-13 02:34 | disposition home or self-care (01) ==
LOC: VM.ED 01:17
DX: O99.891 Other specified diseases and conditions complicating pregnancy (principal); M25.562 Pain in left knee; R60.0 Localized edema; Z3A.33 33 weeks gestation of pregnancy; Z88.2 Allergy status to sulfonamides; Z91.041 Radiographic dye allergy status; Z88.5 Allergy status to narcotic agent; Z88.8 Allergy status to other drugs, medicaments and biological substances; Z79.899 Other long term (current) drug therapy
CPT/HCPCS: 73562-LT; 99283

== ENCOUNTER 2024-07-24 13:56 | Emergency (ER) | payer MEDICAID ==
[2024-07-24 14:08] VITALS: BP 117/65; PULSE 98
[2024-07-24] MEDS: Ketorolac 30 MG/ML SDV IM ONE (14:27)
== END 2024-07-24 15:35 | disposition home or self-care (01) ==
LOC: VM.ED 13:56
DX: M25.562 Pain in left knee (principal); M25.552 Pain in left hip; J06.9 Acute upper respiratory infection, unspecified; Z79.899 Other long term (current) drug therapy; E66.9 Obesity, unspecified; Z88.1 Allergy status to other antibiotic agents; Z88.2 Allergy status to sulfonamides; Z88.5 Allergy status to narcotic agent; Z91.041 Radiographic dye allergy status
CPT/HCPCS: 73562-LT; 96372; 99283; J1885

== ENCOUNTER 2024-12-05 18:40 | Emergency (ER) | payer MEDICAID ==
[2024-12-05] MEDS ORDERED: Sodium Chloride 0.9% 10 ML Syringe FLUSH PRN (18:50)
[2024-12-05] MEDS ORDERED: Lactated Ringers 1,000 ML IV ONE (18:54)
[2024-12-05] MEDS: Ondansetron 4 MG/2 ML SDV IVPUSH ONE (19:05)
[2024-12-05] MEDS: Ketorolac 30 MG/ML SDV IVPUSH ONE (19:06)
[2024-12-05] MEDS: diphenhydrAMINE 50 MG/ML SDV IVPUSH ONE (19:07)
[2024-12-05] MEDS: Metoclopramide 10 MG/2 ML SDV IVPUSH ONE (19:08)
[2024-12-05 19:22] VITALS: BP 147/95; PULSE 92
== END 2024-12-05 19:48 | disposition home or self-care (01) ==
LOC: VM.ED 18:40
DX: G43.909 Migraine, unspecified, not intractable, without status migrainosus (principal); Z88.1 Allergy status to other antibiotic agents; Z88.2 Allergy status to sulfonamides; Z91.041 Radiographic dye allergy status; Z88.5 Allergy status to narcotic agent; Z79.899 Other long term (current) drug therapy
CPT/HCPCS: 96374; 96375; 99283; J1200; J1885; J2405; J2765

== ENCOUNTER 2025-07-12 18:04 | Emergency (ER) | payer MEDICAID ==
[2025-07-12 18:18] VITALS: BP 140/95; PULSE 114
[2025-07-12] MEDS: Take Home: predniSONE 20 MG, 2 Tab Pack PO ONE (18:42)
== END 2025-07-12 18:48 | disposition home or self-care (01) ==
LOC: VM.ED 18:04
DX: T78.40XA Allergy, unspecified, initial encounter (principal); F17.200 Nicotine dependence, unspecified, uncomplicated; R03.0 Elevated blood-pressure reading, without diagnosis of hypertension; Z88.8 Allergy status to other drugs, medicaments and biological substances; Z88.2 Allergy status to sulfonamides; Z91.041 Radiographic dye allergy status; Z79.899 Other long term (current) drug therapy
CPT/HCPCS: 99283; J7512

== ENCOUNTER 2025-07-24 21:47 | Emergency (ER) | payer MEDICAID ==
[2025-07-24 22:18] VITALS: BP 137/92; PULSE 92
== END 2025-07-24 22:36 | disposition home or self-care (01) ==
LOC: VM.ED 21:47
DX: T78.40XA Allergy, unspecified, initial encounter (principal); K21.9 Gastro-esophageal reflux disease without esophagitis; E66.9 Obesity, unspecified; Z68.39 Body mass index [BMI] 39.0-39.9, adult; Z88.2 Allergy status to sulfonamides; Z88.5 Allergy status to narcotic agent; Z88.8 Allergy status to other drugs, medicaments and biological substances; Z91.041 Radiographic dye allergy status; Z79.899 Other long term (current) drug therapy
CPT/HCPCS: 99283; A9270-GY